=== PATIENT | male | born 1985 | race Caucasian/White ===

== ENCOUNTER 2018-09-19 02:06 | Emergency (ER) | payer MEDICAID ==
[~2018-09-19] VITALS: Ht 170.2 cm; Wt 65.8 kg
[2018-09-19] MEDS ORDERED: PROMETHAZINE HCL 25 MG/ML 1ML IV ONE ×2 (03:00→05:30)
[2018-09-19] MEDS ORDERED: MORPHINE SULFATE 4 MG/ML SYR/VIAL IV ONE ×2 (03:00→05:45)
[2018-09-19] MEDS ORDERED: SODIUM CHLORIDE 0.9% 1,000 ML IV ONE (03:00)
[2018-09-19 04:13] LABS: Lactic Acid w/Reflex 2.5 mmol/L (0.4-2.0)
[2018-09-19 04:15] LABS: Basophils # (auto) 0 uL; Eosinophils # (auto) 0 uL; Mean Corpuscular Hemoglobin 19.5 pg (28.0-32.0); Mean Corpuscular Volume 63.7 fL (80.0-100.0); Monocytes % (auto) 4.7 % (0.0-12.0); Red Cell Distribution Width 18.6 % (11.8-14.3)
[2018-09-19 04:18] LABS: Hematocrit 37.9 % (41.0-53.0); Hemoglobin 11.6 g/dL (13.5-17.5); Lymphocytes # (auto) 0.3 uL; Lymphocytes % (auto) 2.1 % (10.0-50.0); Mean Corpuscular Hgb Conc. 30.6 g/dL (32.0-36.0); Monocytes # (auto) 0.7 uL; Neutrophils # (auto) 14.8 uL; Neutrophils % (auto) 93.2 % (37.0-80.0); Platelet Count (auto) 310 10^3/uL (140-450); Red Blood Cells 5.95 10^6/uL (4.5-5.90); White Blood Cell 15.9 10^3/uL (4.4-10.8)
[2018-09-19 04:37] LABS: Albumin 4.4 g/dL (3.4-5.0); Anion Gap 14 (5-15); Blood Urea Nitrogen 25 mg/dL (7-18); Calcium 9.6 mg/dL (8.5-10.1); Carbon Dioxide 21 mmol/L (21-32); Chloride 101 mmol/L (98-107); Glucose 161 mg/dL (74-106); Lipase 64 U/L (73-393); Magnesium 1.9 mg/dL (1.6-2.6); Potassium 3.3 mmol/L (3.5-5.1); Sodium 136 mmol/L (136-145)
[2018-09-19 04:39] LABS: Alanine Aminotransferase 23 U/L (16-61); Amylase 189 U/L (25-115); Aspartate Aminotransferase 16 U/L (15-37); BUN/Creatinine Ratio 17.2; GFR African American 72 mL/min; GFR Non-African American 60 mL/min
[2018-09-19 04:44] LABS: Alkaline Phosphatase 72 U/L (45-117); Bilirubin, Total 1.6 mg/dL (0.2-1.0); Total Protein 8.6 g/dL (6.4-8.2)
[2018-09-19 04:55] LABS: INR 1.02 (0.9-1.15); Partial Thromboplastin Time 26.7 sec (23.78-33.04); Prothrombin Time 10.9 sec (9.27-12.13)
[2018-09-19] MEDS ORDERED: SODIUM CHLORIDE 0.9% 2,000 ML IV ONE (05:45)
[2018-09-19] MEDS ORDERED: IOHEXOL 300 MG/ML 100ML BOTTLE IJ ONE (06:19)
[2018-09-19 09:41] LABS: Urine Bacteria FEW /hpf (None Seen); Urine Blood 2+ /uL (Negative); Urine Mucus FEW (None Seen); Urine Specific Gravity > 1.050 (1.001-1.035); Urine WBC 14 /hpf (0 - 3)
[2018-09-19 09:49] VITALS: BP 141/89
== END 2018-09-19 10:06 | disposition left against medical advice (07) ==
LOC: EDBD 02:06 → ER 02:07
DX: A41.9 Sepsis, unspecified organism (principal); Z87.442 Personal history of urinary calculi
CPT/HCPCS: 36415; 74177; 80053; 81001; 82150; 83605; 83690; 83735; 84484; 85025; 85610; 85730; 87040; 87086; 96361; 96374; 96375; 96376; 99284; J2270; J2550; J7030; Q9967

== ENCOUNTER 2019-02-20 11:55 | Inpatient (IN) | payer BC, MEDICAID ==
[~2019-02-20] VITALS: Ht 154.3 cm; Wt 69.8 kg
[2019-02-20] MEDS ORDERED: SODIUM CHLORIDE 0.9% 1,000 ML IVB ONE (12:05)
[2019-02-20] MEDS ORDERED: PROCHLORPERAZINE EDISYLATE 5 MG/ML 2ML VIAL IV ONE (12:15)
[2019-02-20] MEDS ORDERED: HYDROmorphone HCL 2 MG/ML VL IV ONE (12:15)
[2019-02-20 12:50] LABS: Basophils # (auto) 0.1 uL; Eosinophils # (auto) 0 uL; Eosinophils % (auto) 0.1 % (0.0-7.0); Lymphocytes # (auto) 0.2 uL; Mean Corpuscular Hemoglobin 21.6 pg (28.0-32.0); Monocytes # (auto) 0.4 uL
[2019-02-20 12:52] LABS: Basophils % (auto) 0.5 % (0.0-2.0); Hemoglobin 12.3 g/dL (13.5-17.5); Lymphocytes % (auto) 1.2 % (10.0-50.0); Mean Corpuscular Hgb Conc. 30.7 g/dL (32.0-36.0); Mean Corpuscular Volume 70.4 fL (80.0-100.0); Monocytes % (auto) 2.7 % (0.0-12.0); Neutrophils % (auto) 95.5 % (37.0-80.0); Platelet Count (auto) 233 10^3/uL (140-450); Red Blood Cells 5.68 10^6/uL (4.5-5.90); Red Cell Distribution Width 19.4 % (11.8-14.3); White Blood Cell 15.7 10^3/uL (4.4-10.8)
[2019-02-20 13:11] LABS: BUN/Creatinine Ratio 17.1; Calcium 8.7 mg/dL (8.5-10.1); Magnesium 1.8 mg/dL (1.6-2.6); Potassium 3.5 mmol/L (3.5-5.1)
[2019-02-20 13:14] LABS: Bilirubin, Total 1.3 mg/dL (0.2-1.0); Total Protein 7.3 g/dL (6.4-8.2)
[2019-02-20] MEDS ORDERED: MORPHINE SULF INJ 2 MG/ML SYRINGE 1ML IV PRN (14:00)
[2019-02-20] MEDS ORDERED: NITROGLYCERIN 0.4 MG SL TAB SL PRN (14:00)
[2019-02-20] MEDS ORDERED: DEXTROSE (50%) 50ML SYRG IV PRN (14:00)
[2019-02-20] MEDS ORDERED: ACETAMINOPHEN 500 MG TAB PO PRN (14:00)
[2019-02-20] MEDS ORDERED: PROMETHAZINE HCL 25 MG/ML 1ML IV PRN (14:00)
[2019-02-20] MEDS ORDERED: NALBUPHINE HCL 10 MG/1ml INJECTION IV PRN (14:00)
[2019-02-20] MEDS ORDERED: cefTRIAXone 1GM/50ML D5W 50 ML IV ONE (14:00)
[2019-02-20] MEDS ORDERED: TEMAZEPAM 15 MG CAP PO PRN (14:00)
[2019-02-20] MEDS: SODIUM CHLORIDE 0.9% 1,000 ML IV SCH (14:21)
[2019-02-20] MEDS: metroNIDAZOLE 500 MG TAB PO SCH ×2 (14:21→21:09)
[2019-02-20] MEDS: traMADol HCL 50 MG TAB PO PRN ×2 (14:24→20:30)
[2019-02-20 15:13] LABS: Urine Bacteria NONE SEEN /hpf (None Seen); Urine Blood 2+ /uL (Negative); Urine Mucus FEW (None Seen); Urine Specific Gravity 1.019 (1.001-1.035); Urine WBC 11 /hpf (0 - 3)
--- NOTE | 2019-02-20 17:09 | NUR ---
PAGED DR LONG PATIENT REQUESTING DILAUDID THIS MEDICATION IS THE ONLY THAT WORKS FOR HIM, PATIENT ALSO REQUESTING SOMETHING FOR ANXIETY. PER PATIENT HE HAS BEEN DEALING WITH THIS CHRONIC PAIN SINCE 13 YEARS OLD. RECEIVED CALL BACK FROM [facility] AND ATIVAN 0.5 MG Q 6 PO . WILL IMPLEMENT ORDERS.
[2019-02-20] MEDS ORDERED: LORazepam 0.5 MG TAB PO PRN (17:15)
[2019-02-20] MEDS: ACCU-CHEK COMFORT CURVE STRIP VI SCH (17:57)
--- NOTE | 2019-02-20 18:10 | NUR ---
PATIENT REFUSING ACCU CHECK STATES HE HAS NO HISTORY OF DIABETES THAT HE IS AWARE OF, AND NO ONE HAS DONE ACCU CHECK THIS VISIT. SERUM GLUCOSE DONE IN ER IS 157 AND A1C IS 6.0
--- NOTE | 2019-02-20 18:45 | NUR ---
PATIENT REQUESTING TO SHOWER. EDUCATED PATIENT ON THE NEED FOR DR ORDER AND PATIENT STILL TOOK OFF TELE BOX AND REQUESTED TO SHOWER. PATIENT CURRENTLY SHOWERING, WILL REPLACE TELE ONCE DONE.
--- NOTE | 2019-02-20 19:28 | NUR ---
PATIENT WENT DOWN STAIRS DOES NOT HAVE TELE ON WENT DOWN TO GET GATORADE , WILL ENDORSE TO [facility] NURSE TO REPLACE TELE BOX NUMBER [phone] WHEN PATIENT RETURNS.
--- NOTE | 2019-02-20 19:29 | NUR ---
Opening Shift Note Assumed care of patient, awake and alert. No S/S of distress/SOB or pain. Instructed on POC and to call for assist PRN, will continue to monitor for changes Q1hr and PRN. Side rails up x2. Bed locked in lowest position. Call light within reach.
--- NOTE | 2019-02-20 19:36 | NUR ---
Patient back to his room. No distress noted.
[2019-02-20] MEDS ORDERED: CALCIUM CARB 500 MG CHEW TAB PO ONE (22:45)
[2019-02-21 05:24] VITALS: BP 105/68
[2019-02-21 05:28] LABS: Basophils # (auto) 0 uL; Basophils % (auto) 0.4 % (0.0-2.0); Lymphocytes # (auto) 0.6 uL; Red Blood Cells 5.08 10^6/uL (4.5-5.90)
[2019-02-21 05:31] LABS: Eosinophils # (auto) 0.1 uL; Eosinophils % (auto) 1.8 % (0.0-7.0); Hematocrit 36.2 % (41.0-53.0); Hemoglobin 11.3 g/dL (13.5-17.5); Mean Corpuscular Hemoglobin 22.2 pg (28.0-32.0); Mean Corpuscular Hgb Conc. 31.2 g/dL (32.0-36.0); Mean Corpuscular Volume 71.3 fL (80.0-100.0); Monocytes # (auto) 0.8 uL; Monocytes % (auto) 10.8 % (0.0-12.0); Neutrophils # (auto) 6.1 uL; Platelet Count (auto) 213 10^3/uL (140-450); Red Cell Distribution Width 19.7 % (11.8-14.3); White Blood Cell 7.7 10^3/uL (4.4-10.8)
[2019-02-21 05:36] LABS: Potassium 3.7 mmol/L (3.5-5.1)
[2019-02-21 05:46] LABS: Albumin 3.7 g/dL (3.4-5.0); BUN/Creatinine Ratio 15.4; Bilirubin, Total 0.7 mg/dL (0.2-1.0); Calcium 8.3 mg/dL (8.5-10.1)
[2019-02-21] MEDS: SODIUM CHLORIDE 0.9% 1,000 ML IV SCH ×2 (05:48→09:24)
[2019-02-21] MEDS: ACCU-CHEK COMFORT CURVE STRIP VI SCH ×3 (05:48→11:48)
[2019-02-21] MEDS: metroNIDAZOLE 500 MG TAB PO SCH ×2 (05:48→16:13)
--- NOTE | 2019-02-21 07:30 | NUR ---
Opening Shift Note RECEIVED REPORT FROM NOC RN. Assumed care of patient, awake and alert. No S/S of distress/SOB or pain. BED IN LOWEST, LOCKED POSITION WITH SIDERAILS UP x2. Instructed on POC and to call for assist PRN, will continue to monitor for changes Q1hr and PRN.
--- NOTE | 2019-02-21 07:34 | NUR ---
Endorsed care to day shift RN. Patient in bed asleep with no signs of distress.
[2019-02-21 08:05] VITALS: BP 104/65
[2019-02-21 09:00] VITALS: BP 104/65
[2019-02-21] MEDS ORDERED: cefTRIAXone 1GM/50ML D5W 50 ML IV SCH (09:00)
--- NOTE | 2019-02-21 09:17 | NUR ---
RECEIVED CALL FROM LAB INDICATING THEY RECEIVED STOOL SAMPLE FOR C.DIFF. NO PAPERWORK SENT WITH SAMPLE. NO NOTES IN PATIENT'S CHART REGARDING FREQUENCY OR CONSISTENCY OF STOOL. WILL ATTEMPT TO RECOLLECT LATER TODAY.
[2019-02-21 13:00] VITALS: BP 123/77
--- NOTE | 2019-02-21 13:00 | NUR ---
PAGED DR. JUNIOR.
[2019-02-21 17:00] VITALS: BP 148/77
[2019-02-21 18:31] VITALS: BP 148/77
--- NOTE | 2019-02-21 19:00 | NUR ---
Discharge instructions given as ordered. Encourage to follow up with PMD as instructed. All questions and concerns addressed. Patient verbalized understanding. Medication reconciliation form completed and copy given to patient. IV removed with catheter intact, pressure dressing applied. Telemetry unit returned to [facility]. Patient taken to vehicle via wheelchair with all personal belongings, accompanied by staff and family member. No distress noted at time of departure.
== END 2019-02-21 19:00 | disposition home or self-care (01) | DRG 386 ==
LOC: EDBD 11:55 → ER 11:58 → TELE 11:59 → TELE-WESTW 15:13
PROVIDERS: ADMIT Internal Medicine; ATTEND Internal Medicine
DX: K51.90 Ulcerative colitis, unspecified, without complications (principal); N39.0 Urinary tract infection, site not specified; F12.90 Cannabis use, unspecified, uncomplicated; N20.0 Calculus of kidney; Z87.442 Personal history of urinary calculi; Z93.6 Other artificial openings of urinary tract status; Z90.49 Acquired absence of other specified parts of digestive tract
CPT/HCPCS: 36415; 74176; 80053; 81001; 83036; 83690; 83735; 85025; 85652; 86141; 87086; 94761; 96361; 96365; 96375; G0378; J0696